=== PATIENT | male | born 1990 | race Caucasian/White ===

== ENCOUNTER 2022-01-30 09:32 | Emergency (ER) | payer MEDICAID, OTHER ==
[~2022-01-30] VITALS: Ht 172.7 cm; Wt 74.8 kg
--- NOTE | 2022-01-30 09:45 | NUR ---
BIB SELF C/O ABDOMINAL PAIN AND "EXPLOSIVE" NON-BLOODY DIARRHEA X 3 DAYS. DENIES RECENT TRAVEL. REPORTS TO BE VEGAN AND FOLLOWING THE SAME DIET. AAOX4, BREATHING EVEN AND UNLABORED, PULSES 2+ BILATERALLY, SKIN WARM TO TOUCH. ON MONITOR. VS STABLE. COMFORT MEASURES IN PLACE. WILL CONTINUE TO MONITOR.
--- NOTE | 2022-01-30 09:50 | NUR ---
URINE SAMPLE OBTAINED AND SENT TO LAB
--- NOTE | 2022-01-30 09:59 | NUR ---
BLOOD SAMPLE OBTAINED AND SENT TO LAB
[2022-01-30] MEDS ORDERED: IV NS 0.9% 1,000 ML BAG IV ONE (10:00)
[2022-01-30 10:05] LABS: BASOPHILS % (AUTO) 0.2 % (0.0-2.0); HEMATOCRIT 46 % (39-51); HEMOGLOBIN 15.7 g/dL (13.5-17.5); LYMPHOCYTES # (AUTO) 0.9 K/uL (0.8-4.8); LYMPHOCYTES % (AUTO) 19.3 % (20.0-44.0); MEAN CORPUSCULAR HGB CONC 34 g/dl (31.0-36.0); MEAN CORPUSCULAR VOLUME 92 fL (80-96); MONOCYTES # (AUTO) 0.5 K/uL (0.1-1.30); MONOCYTES % (AUTO) 11.2 % (2.0-12.0); NEUTROPHILS # (AUTO) 3.1 K/uL (1.8-8.9); NEUTROPHILS % (AUTO) 69.3 % (43.0-81.0); PLATELET COUNT (AUTO) 157 K/uL (150-450); RED BLOOD CELL COUNT(AUTO) 5.02 MIL/uL (4.5-6.0); WHITE BLOOD COUNT (AUTO) 4.5 K/uL (4.3-11.0)
--- NOTE | 2022-01-30 10:08 | NUR ---
PT TAKEN TO CT
[2022-01-30 10:17] LABS: ALBUMIN 3.4 g/dL (3.4-5.0); BILIRUBIN,DIRECT 0.1 mg/dL (0.0-0.2); BILIRUBIN,TOTAL 0.4 mg/dL (0.2-1.0); CALCIUM, SERUM 8.9 mg/dL (8.5-10.1); TOTAL PROTEIN, SERUM 7.2 g/dL (6.4-8.2)
--- NOTE | 2022-01-30 10:28 | NUR ---
PT AMBULATED TO RESTROOM
--- NOTE | 2022-01-30 10:31 | NUR ---
PT AMBULATED BACK TO BED, ATTACHED TO MONITOR, VS STABLE
--- NOTE | 2022-01-30 10:31 | NUR ---
PT REPORTS CONTINUES TO HAVE DIARRHEA. NONBLOODY.
[2022-01-30] MEDS ORDERED: CIPR-262 PO (11:09)
[2022-01-30] MEDS ORDERED: DIPH1TAB PO (11:09)
--- NOTE | 2022-01-30 11:14 | NUR ---
PT AMBULATED TO RESTROOM.
--- NOTE | 2022-01-30 11:44 | NUR ---
Patient discharged to home in stable condition. Written and verbal after care instructions given. Patient verbalizes understanding of instruction.
--- NOTE | 2022-01-30 11:44 | NUR ---
IV removed. Catheter intact and site benign. Pressure and 4x4 applied to site. No bleeding noted.
[2022-01-30 11:45] VITALS: BP 120/76
== END 2022-01-30 11:46 | disposition home or self-care (01) ==
LOC: ER 09:37
DX: K52.9 Noninfective gastroenteritis and colitis, unspecified (principal); F17.200 Nicotine dependence, unspecified, uncomplicated; Z60.2 Problems related to living alone; Z79.899 Other long term (current) drug therapy
CPT/HCPCS: 36415; 74176; 80048; 80076; 83690; 85025; 96360; 99284; J7030